=== PATIENT | female | born 1980 | race Caucasian/White ===

== ENCOUNTER 2018-07-01 13:04 | Emergency (ER) | payer OTHER ==
[~2018-07-01] VITALS: Ht 152.4 cm; Wt 72.6 kg
[~2018-07-01 13:04] MED LIST: SINGULAIR10 MG
[2018-07-01] MEDS ORDERED: FLONASE16 GM (13:33)
[2018-07-01] MEDS ORDERED: SYMBICORT 16010.2 GM (13:33)
== END 2018-07-01 17:23 | disposition home or self-care (01) ==
LOC: ER 13:04
DX: M75.52 Bursitis of left shoulder (principal); M77.12 Lateral epicondylitis, left elbow

== ENCOUNTER → 2018-09-18 | Emergency (ER) | payer OTHER ==
[~2018-09-18] VITALS: Ht 152.4 cm; Wt 82.6 kg
[~2018-09-18] MED LIST changes: +BETAMETHASONE D15 G3 TOP; +FLONASE16 GM; +SYMBICORT 16010.2 GM
== END | disposition home or self-care (01) ==
LOC: ER 20:07
DX: L30.8 Other specified dermatitis (principal)

== ENCOUNTER 2021-11-01 14:49 | Outpatient (CLI) | payer OTHER | END 2021-11-01 14:56 | disposition home or self-care (01) | LOC: RAD 14:49 | PROVIDERS: ATTEND Orthopaedic Surgery | DX: M25.572 Pain in left ankle and joints of left foot (principal) ==

== ENCOUNTER 2021-11-02 09:42 | Outpatient (CLI) | payer OTHER | END 2021-11-02 09:52 | disposition home or self-care (01) | LOC: RAD 09:42 | PROVIDERS: ATTEND Orthopaedic Surgery | DX: M25.572 Pain in left ankle and joints of left foot (principal) ==